=== PATIENT | male | born 1945 | race Caucasian/White ===

== ENCOUNTER 2020-02-23 20:15 | Observation (INO) | payer MEDICARE, SELFPAY ==
--- NOTE | ~2020-02-23 | XR_ITS ---
EXAMINATION: XR chest 1V portable EXAM DATE: 02/23/2020 20:48 INDICATION: Altered mental status, dementia. Elevated heart rate. TECHNIQUE: Portable AP frontal chest x-ray was obtained. There is no prior study for comparison. FINDINGS: Mild hyperinflation. The lungs are clear. There are no pleural effusions. The cardiomedia stinal silhouette is within normal limits. There is no pneumothorax suspected. The bones and soft t issues are unremarkable. IMPRESSION: Chronic mild hyperinflation. Reviewed, dictated and finalized at location A.
--- NOTE | ~2020-02-23 | CT_ITS ---
EXAMINATION: CT brain wo con EXAM DATE: 02/23/2020 21:27 INDICATION: Temporary change in awareness. TECHNIQUE: Spiral CT of the head was performed without contrast. Axial, coronal and sagittal images were reviewed. The dose-length product (DLP) for this examination was 1210.67 mGy-cm. The exposure was tailored according to patient size, and iterative reconstruction (ASIR) was used as additional do se reduction technique. There is no prior study for comparison. FINDINGS: There is no acute intraparenchymal hemorrhage. No evidence of intraparenchymal brain mass lesion. No evidence of acute infarction. Please note that initial head CT has limited sensitivity f or small or acute infarctions. There is mild periventricular and subcortical hypodensity, nonspecific but probably related to small vessel ischemic disease. There is mild to moderate prominence of the sulci and ventricles related to cerebral atrophy. There is intracranial carotid arteriosclerosis. There are no extra-axial collections. There is no mass effect or midline shift. Patient has had ri ght-sided ocular lens surgery. Soft tissue is unremarkable. The visualized sinuses and mastoid air cells are well aerated. IMPRESSION: 1. No acute intracranial findings. 2. Chronic age related findings. Reviewed, dictated and finalized at location A.
--- NOTE | ~2020-02-23 | CT_ITS ---
EXAMINATION: CTA neck DATE: 02/25/2020 16:08 INDICATION: Carotid stenosis. TECHNIQUE: Computed tomographic angiography (CTA) of the neck was performed with 100 mL Omnipaque-350 intravenous contrast. Automated exposure control and iterative reconstruction technique were employe d. The dose-length product was 537.83 mGy-cm. Maximum intensity projection 3D-reconstructions were cr eated by the technologist on a separate workstation. COMPARISON: Ultrasound 02/25/2020 FINDINGS: There is mild scarring at the lung apices. There are no pathologically enlarged lymph nodes . There is a 1.5 cm subcutaneous mass in the posterior neck, likely a sebaceous cyst. The vertebral a rteries are codominant. There is mild stenosis of the mid right vertebral artery secondary to cervica l spondylosis. There is plaque in the proximal internal carotid arteries. There is 47% stenosis of th e proximal right internal carotid artery relative to normal distal artery lumen diameter (NASCET crit eria). There is 78% stenosis of the proximal left internal carotid artery relative to normal distal a rtery lumen diameter. There is severe cervical spondylosis. IMPRESSION: 1. 47% stenosis of the proximal right internal carotid artery relative to normal distal artery lumen diameter (NASCET criteria). 2. 78% stenosis of the proximal left internal carotid artery relative to normal distal artery lumen d iameter. Reviewed, dictated and finalized at location A. IMPRESSION: 1. 47% stenosis of the proximal right internal carotid artery relative to dangelo l distal artery lumen diameter (NASCET criteria). 2. 78% stenosis of the proximal left internal carotid artery relative to normal distal artery lumen diameter.
--- NOTE | ~2020-02-23 | US_ITS ---
EXAMINATION: US carotid duplex BI DATE: 02/25/2020 09:16 INDICATION: Confusion. Transient alteration of awareness. TECHNIQUE: Grayscale, color Doppler, and pulsed Doppler images of the cervical carotid arteries were obtained. The degree of vessel stenosis is placed in one of the following categories: normal, <50%, 5 0-69%, >=70% but less than near-occlusion, near-occlusion, or total occlusion. Note that percent sten osis relative to normal distal artery lumen diameter is indirectly measured from velocity measurement s as described by Wayne, et al. Radiology 2003; 229:340-346. Notes: Normal: Peak systolic velocity <125 centimeters/sec and no plaque <50%. Peak systolic velocity <125 ( EDV <40; ICA/CCA PSV ratio <2.0; used these factors only a tandem lesions or low cardiac output or co ntralateral disease) 50-69 %: PSV 125-230 (EDV 40-100; ratio 2-4) >= 70% but less than near occlusion: PSV greater than 230 (EDV > 100; ratio> 4.0) Near Occlusion: PSV that is variable; markedly narrowed lumen Occlusion: Absent flow on color/spectral Doppler and no lumen on shi scale. COMPARISON: None. FINDINGS: RIGHT: The right common carotid artery (CCA) peak systolic velocity (PSV) is 59 cm/s. The right internal car otid artery (ICA) PSV is 128 cm/s. The right ICA end-diastolic velocity (EDV) is 29 cm/s. The right I CA/CCA PSV ratio is 2.2. The external carotid artery (ECA) PSV is 313 cm/s. There is antegrade flow i n the right vertebral artery. LEFT: The left CCA PSV is 108 cm/s. The left ICA PSV is 299 cm/s. The left ICA EDV is 81 cm/s. The left ICA /CCA PSV ratio is 2.8. The ECA PSV is 131 cm/s. There is antegrade flow in the left vertebral artery . IMPRESSION: 1. 50-69% stenosis in the right internal carotid artery by sonographic criteria. 2. Greater than or equal to 70% stenosis in the left internal carotid artery by sonographic criteria. Reviewed, dictated and finalized at location A. IMPRESSION: 1. 50-69% stenosis in the right internal carotid artery by sonographic criteria . 2. Greater than or equal to 70% stenosis in the left internal carotid artery by sonographic criteria.
--- NOTE | ~2020-02-23 | MR_ITS ---
EXAMINATION: MR brain/brain stem wo/w con DATE: 02/25/2020 12:12 INDICATION: Confusion. Alteration of awareness. TECHNIQUE: Magnetic resonance imaging (MRI) of the brain and brainstem was performed without and with 13 cc MultiHance intravenous contrast. Sequences included sagittal and axial T1-weighted SE, axial d iffusion-weighted FS SE, axial T2*-weighted GRE, axial T2-weighted FLAIR Propeller, and axial T2-weig hted Propeller. Apparent diffusion coefficient (ADC) maps were created. COMPARISON: CT dated 02/23/2020. FINDINGS: Generalized atrophy. There are scattered mild-moderate periventricular and subcortical whit e matter changes, most likely related to small vessel ischemic disease (microangiopathy). No acute in tracranial infarction or hemorrhage. No abnormal masses or enhancement. No ventriculomegaly or midlin e shift. Structures of the posterior fossa are unremarkable. No significant abnormality of the sinuse s. IMPRESSION: 1. No acute intracranial abnormality. 2: Chronic age-related findings. Reviewed, dictated and finalized at location A.
[2020-02-23 20:13] VITALS: BP 139/78; PULSE 147; RESP 18; TEMP 36.8; O2SAT 98
[2020-02-23 20:16] VITALS: PULSE 147
--- NOTE | 2020-02-23 20:21 | PC.NURSE ---
EKG done at 2009, showed to [facility] at 2020
--- NOTE | 2020-02-23 20:24 | ED.AMS ---
HPI - Altered Mental Status General Chief Complaint: Arrhythmia/Palpitations Stated Complaint: alt loc Time Seen by Provider: 02/23/20 20:21 History of Present Illness HPI narrative: Brought in by EMS from home for AMS. He reportedly has dementia, but his said that he had been more confused than usual. Noted to be in a-fib with RVR. He is only oriented to himself and is not able to provide any useful history. Medical history or course of currently illness unknown. Related Data Home Medications Medication Instructions Recorded Confirmed donepezil 5 mg PO HS 02/24/20 02/24/20 escitalopram oxalate 20 mg PO DAILY 02/24/20 02/24/20 losartan 50 mg PO DAILY 02/24/20 02/24/20 metoprolol succinate 100 mg PO DAILY 02/24/20 02/24/20 quetiapine 25 mg PO DAILY 02/24/20 02/24/20 tamsulosin 0.4 mg PO HS 02/24/20 02/24/20 trazodone 50 mg PO HS 02/24/20 02/24/20 venlafaxine 150 mg PO DAILY 02/24/20 02/24/20 Allergies Allergy/AdvReac Type Severity Reaction Status Date / Time No Known Allergies Allergy Verified 02/23/20 22:53 Review of Systems Review of Systems: ROS unobtainable: Yes unobtainable due to mental status PMFSH Past Medical History Medical History (Updated 02/24/20 @ 04:32 by Wayne Oliver MD) BPH (benign prostatic hyperplasia) Chronic anemia Chronic renal failure, stage 3 (moderate) HTN (hypertension), malignant Surgical History Surgical History (Updated 02/23/20 @ 23:16 by Carmina Hurtado NP) Cataract extraction status of eye Right eye Family History Family History (Updated 02/24/20 @ 02:13 by Crystal Simon RN) Sibling Diabetes mellitus Sibling Cancer Mother Pacemaker Sibling Mental disorder Father Cancer Social History Social History (Updated 02/23/20 @ 23:22 by Carmina Hurtado NP) Social History: The patient lives with his Tory and she is a durable power claim attorney for healthcare. She states that the patient is a full code. He has a daughter named Katie correia. The patient used to use smoke heavily 2 packs of cigarettes a day until the age of 27. He quit smoking since then. He will retired from [employer] still. He used to drink alcohol but does not currently. No marijuana or illicit drugs. Smoking packs per day: 2 Smoking cigarettes per day: 40.0 Smoking status: Former smoker Tobacco type: cigarettes Alcohol intake: former Substance use: never Living arrangements: with family Occupation/Education: retired Gender identity (if verbalized by the patient): Male Sexual Orientation (if Verbalized by the Patient): Straight or Heterosexual Comments History unobtainable. Exam Const: General: no acute distress and alert Nutritional Appearance: well nourished Other: oriented to self HENMT: Head: normal to inspection Eyes: Pupils: Equal, round and reactive pupils present Resp: Effort & Inspection: normal respiratory effort Auscultation: clear to auscultation bilaterally Cardio: Rate: tachycardic Rhythm: abnormal rhythm irregularly irregular GI: GI Palp: Yes Soft to palpation and No Tenderness to palpation present (GI) Skin: General skin exam: normal color Neuro: General: moves all extremities, no focal motor deficits and CN's II-XI intact bilaterally Speech: normal speech Extrem: General: no edema Course Vital Signs Vital signs: Vital Signs Temperature 36.8 C 02/23/20 20:13 Pulse Rate 147 H 02/23/20 20:13 Respiratory Rate 18 02/23/20 20:13 Blood Pressure 139/78 02/23/20 20:13 Pulse Oximetry 98 02/23/20 20:13 Temperature 36.3 C L 02/24/20 04:00 Pulse Rate 72 02/24/20 04:00 Respiratory Rate 20 02/24/20 04:00 Blood Pressure 125/66 02/24/20 04:00 Pulse Oximetry 100 02/24/20 04:00 MDM - Altered Mental Status MDM Narrative Medical decision making narrative: New onset a-fib w/ RVR. Dr. Be consulted. Will admit to the IMU. Differential Diagnosis Differential diagnosis: Likely del
[2020-02-23] MEDS: dilTIAZem HCl INJ 25 MG/5 ML VIAL 10 MG IV PUSH (20:31)
[2020-02-23] MEDS: SODIUM CHLORIDE 0.9% IV 1,000 ML 999 ML IV CONT (20:31)
[2020-02-23 20:36] VITALS: BP 134/78; PULSE 115; RESP 20; O2SAT 100
[2020-02-23 20:44] LABS: Partial Thromboplastin Time 34.6 SECONDS (22.3-36.8)
[2020-02-23 20:45] LABS: Basophils Percent Auto 0.3 % (0.2-1.2); Eosinophils Percent Auto 0.4 % (0-4.4); Hematocrit 33.8 % (42.0-52.0); Hemoglobin 11.8 g/dL (14.0-18.0); Immature Granulocyte Absolute 0.04 K/mm3 (0.00-0.031); Immature Granulocyte Percent A 0.4 % (0-0.5); Lymphocytes Absolute Auto 1.78 K/mm3 (0.9-3.2); Lymphocytes Percent Auto 15.8 % (18.3-44.2); Mean Corpuscular HGB Conc 34.9 g/dl (32-36); Mean Corpuscular Hemoglobin 31.3 pg (26-34); Mean Corpuscular Volume 89.7 fl (80-100); Mean Platelet Volume 9.8 fl (7.4-10.4); Monocytes Absolute Auto 1.1 K/mm3 (0.1-0.6); Monocytes Percent Auto 9.8 % (2.6-8.5); Neutrophils Absolute Auto 8.3 K/mm3 (1.3-6.7); Neutrophils Percent Auto 73.3 % (45.5-73.1); Platelet Count Result 265 k/mm3 (150-375); Red Blood Count 3.77 M/mm3 (4.6-6.20); Red Cell Distribution Width 13.2 % (11.5-14.5); White Blood Count 11.3 K/mm3 (4.5-10.0)
[2020-02-23 20:47] LABS: Alanine Aminotransferase 21 U/L (4-50); Albumin Level 4.1 g/dL (3.5-5.1); Alkaline Phosphatase 85 U/L (38-126); Anion Gap 11 mmol/L (8-16); Aspartate Amino Transferase 37 U/L (17-59); Bilirubin,Total 0.9 mg/dL (0.2-1.3); Blood Urea Nitrogen 37 mg/dL (9-20); Calcium 9.4 mg/dL (8.4-10.2); Carbon Dioxide 22 mmol/L (22-30); Chloride 103 mmol/L (98-107); Estimated CRCL calculation 37 ml/min; Estimated Glomerular Filt Rate 49; Glucose 133 mg/dL (75-110); Potassium 3.8 mmol/L (3.4-5.0); Sodium 136 mmol/L (137-145)
[2020-02-23 20:58] LABS: Troponin I 0.019 ng/mL (0.000-0.034)
[2020-02-23] MEDS: HALOPERIDOL LACTATE 5 MG/ML VIAL IV PUSH (21:02)
[2020-02-23 21:17] LABS: Thyroid Stimulating Hormone 0.527 uIU/mL (0.465-4.680)
[2020-02-23 21:48] LABS: Add Urine Microscopic? YES; Appearance Urine Clear (Clear); Bacteria Urine Trace /hpf; Bilirubin Urine Negative (Negative); Blood Urine Negative (Negative); Color Urine Yellow (Yellow); Glucose Urine UA Negative (Negative); Ketones Urine 1+ mg/dL (Negative); Leukocyte Esterase Ur Negative LEU/UL (Negative); Mucus Urine Rare /lpf; Nitrate Urine Negative (Negative); Protein Urine 1+ mg/dL (Negative); Specific Grav Ur 1.021 (1.001-1.035); Squamous Epithelial Cell Urine Rare /hpf (Few); Urobilinogen Urine Negative mg/dL (<2.0); WBC Urine 0-3 /hpf
[2020-02-23 22:28] VITALS: BP 134/76; PULSE 108
[2020-02-23] MEDS: ENOXAPARIN 80 MG/0.8 ML SYRINGE 60 MG SUB-Q (22:28)
--- NOTE | 2020-02-23 23:08 | PM.IMHP ---
H&P: HPI History of Present Illness Date/Time: 02/23/20 23:08 Chief complaint: alt loc Narrative: Peter Viveros is a 74 year old male who patient was brought to the emergency due to altered mental status. The patient became more confused recently. I did speak to his Tory over the phone. She stated that the patient had an episode a couple months ago where he was talking about being broken having no insurance and was concerned about his body eating itself. The patient told me that he could not afford to stay in the hospital today and that he was broken did have insurance. I spoke with the in the do have insurance and they are not broke. The patient is not always compliant with his medications. He does not like to seek advice from physicians. 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 It has been stable so far. Also he has been having some prostate problems and the patient was concerned that he had prostate cancer and that nobody selling him. Patient is having some delusional ideas. The patient told me that he is diabetic but his Tory told me that he is not. Patient has not had any previous history of atrial fibrillation or any heart disease in the past that his Tory is aware of. She stated he had his teeth pulled out he had an irregular heart rate at that time but he has not had any treatment for it. He has not had any strokes. The patient told me that he had seizure in the past in the past but the Tory told me that he had not had any seizures. He had a of compulsion with drinking water at 1 time and depleted his electrolytes at 1 time. But does not have seizure disorder. The patient denies any nausea vomiting or diarrhea. However the patient does appear to be dehydrated. Patient has no complaints of chest pain. Head CT was negative for for anything acute at this time. Chest x-ray was read as chronic mild hyperinflation. The patient has a history of being a heavy smoker in the past. Was never diagnosed with COPD as far as the is concerned. Patient's white count is 11.3. H&H 11.8 and 33.8. The patient's did tell me that he does have chronic anemia due to his kidney disease. Troponin is negative. The patient was found to be in AFib with RVR. He the patient was given subcu Lovenox and started on a Cardizem drip. When I saw his rate he was in the 1 teens. Date of service is 02/23/2020 Review of Systems Review of Systems: All systems reviewed & are unremarkable except as noted in HPI and below Constitutional: Constitutional: Reports as per HPI and Reports no additional constitutional complaints Eyes: Eyes: Reports as per HPI and Reports no additional eye complaints ENT: Reports system reviewed and no additional complaints, except as documented and Reports Normal hearing present Cardiovascular: Cardiovascular: Reports no additional cardiovascular complaints Respiratory: Respiratory: Reports no additional respiratory complaints and Reports no additional respiratory complaints Gastrointestinal: Gastrointestinal: Reports as per HPI and Reports no additional gastrointestinal complaints Musculoskeletal: Musculoskeletal: Reports no additional musculoskeletal complaints Integumentary/Breasts: Skin/Breast: Reports system reviewed and no additional complaints, except as docu and Reports as per HPI Neurologic: Reports system reviewed and no additional complaints, except as documented, Reports as per HPI and Reports Normal hearing present Psychiatric: Psychiatric: Reports no additional psychiatric complaints and Reports as per HPI Endocrine: Endocrine: Reports no additional endocrine complaints Hematologic/Lymphatic: Hematologic/Lymphatic: Reports no additional hematologic/lymphatic complaints Allergic/Immunologic: Allergic/Immunologic: Reports no additional allergic/immunologic complaints PMFSH Past Me
[2020-02-23 23:39] VITALS: BP 135/72; PULSE 111; RESP 18; O2SAT 99
[2020-02-24] VITALS (20 sets, daily range): BP systolic 109–149; BP diastolic 60–92; PULSE 69–110; RESP 16–20; TEMP 36.3–36.9; O2SAT 97–100; BMI 20.8
--- NOTE | 2020-02-24 01:26 | ECG_ITS ---
Measurements Intervals [place] Rate: 101 P: PA: 0 QRS: 66 QRSD: 116 T: 31 QT: 396 QTc: 515 Interpretive Statements ATRIAL FLUTTER/TACHYCARDIA WITH RAPID VENTRICULAR RESPONSE FREQUENT VENTRICULAR PREMATURE COMPLEXES INCOMPLETE RIGHT BUNDLE BRANCH BLOCK NONSPECIFIC ST & T-WAVE ABNORMALITY- ANTEROLAT/INF LEADS BASELINE ARTIFACT- II, III, AVR, AVL, AVF, V1-V3 ABNORMAL ECG Electronically Signed On 02-24-2020 7:43:29 CDT by Manuel Clark D.O.
--- NOTE | 2020-02-24 01:26 | ECG_ITS ---
Measurements Intervals [place] Rate: 117 P: TN: 0 QRS: 72 QRSD: 110 T: 43 QT: 298 QTc: 417 Interpretive Statements ATRIAL FLUTTER/TACHYCARDIA WITH RAPID VENTRICULAR RESPONSE VENTRICULAR PREMATURE COMPLEXES INCOMPLETE RIGHT BUNDLE BRANCH BLOCK NONSPECIFIC ST & T-WAVE ABNORMALITY- ANTEROLAT/INF LEADS ABNORMAL ECG Electronically Signed On 02-24-2020 7:36:53 CDT by Manuel Clark D.O.
--- NOTE | 2020-02-24 02:16 | ADMIMU ---
This patient, Peter Viveros, was admitted to IMU status, and placed in IMU Room 231-01 02/24/20 at 0111. Patient/family oriented to hospital policies and general routines including ID bracelet, bed and alarms, visiting hours, pain management, procedures, bathroom and other care routines, personal items, smoking policy, room service/diet, and visiting hours. Valuables list has been completed. Information on how to activate the Rapid Response Team has been discussed. Patient/Family are encouraged to report perceived risks to care and to ask questions if they do not understand what they are told or what they should do.
[2020-02-24] MEDS: ENOXAPARIN 60 MG/0.6 ML SYRINGE SUB-Q ×2 (08:54→20:50)
--- NOTE | 2020-02-24 13:50 | PM.CNCAR ---
Assessment and Plan Assessment and plan (1) Atrial fibrillation with RVR: Code(s): I48.91 - Unspecified atrial fibrillation Status: Acute Assessment and Plan: Patient essentially asymptomatic and incidentally discovered. No prior documentation or known history despite patient stating he has been aware of fibrillation most of his life. Yet, he denied being aware. CHADS2-Vasc score 4. Ideally, systemic A/C recommended for adequate CVA risk reduction, however, Given patient's intermittent confusion, reported noncompliance, and recent fall with possibly hitting his head he would not be an ideal candidate. Aspirin 325 mg daily otherwise would be minimal recommendation as tolerated. Conservative heart rate control strategy appears to be the best option at this time. Initiate metoprolol tartrate 50 mg p.o. q.8 hours and discontinue diltiazem infusion. Will attempt to simplify regimen as HR permits. Anticipate Toprol XL 150mg daily but will need to observe tolerance overnight. Will monitor heart rate control and tolerance. Further recommendations to follow. 2D echocardiogram. (2) Confusion: Code(s): R41.0 - Disorientation, unspecified Status: Acute Assessment and Plan: per primary service. UA unremarkable. Etiology not precisely clear (3) Chronic renal failure, stage 3 (moderate): Code(s): N18.30 - Chronic kidney disease, stage 3 unspecified Status: Chronic Assessment and Plan: creatinine 1.4, chronicity unknown at this time. (4) HTN (hypertension), benign: Code(s): I10 - Essential (primary) hypertension Status: Acute Assessment and Plan: Good control thus far. (5) Falls: Code(s): W19.XXXA - Unspecified fall, initial encounter Status: Acute Assessment and Plan: Places patient high risk for adverse bleeding complications with systemic anticoagulation. PT OT. Further evaluation and candidacy. History of Present Illness History of Present Illness Consult date/time: Date of service:02/24/20 13:50 Cardiology consultation at the request of Carmina Hurtado [facility] for our opinion regarding atrial fibrillation with RVR. Requesting physician: Carmina Hurtado NP Consult reason: atrial fibrillation Reason For Visit: a-fib w/ RVR, AMS Narrative: Patient is a 74-year-old male is brought to the emergency department by his with complaints of altered mental status. Per electronic medical record patient had recently become more confused intermittently. It is min reported per the and by the patient he says he has broken has no insurance and cannot be in the hospital. Per his they are now broke and they have commercial insurance so she is not sure why he continues to repeat this concern. It is reported he is not compliant with medications and does not follow up with medical care. It is noted the electronic record patient claims to be diabetic but the patient's denied this. Patient's reports she was unaware of any history of arrhythmia or specifically atrial fibrillation or CAD but the patient states he has had fibrillation most of his life. He says nothing can be done for him in this regard. He then went on to explain her nothing can be done for him in general and that his internal organs are eating each other and sucking the fluid from him which is why he is dehydrated. When I initially entered his room and prior to saying anything he began repeating [id number] [id number], fabián, fabián... when I asked him what he was saying he can't explain how he has broke and has no insurance and cannot afford to be in the hospital in all that is being done is just to make money. I assured him I am here as requested to provide assistance in his care with regards to his atrial fibrillation. He continually repeated that no one could help him and nothing could be done. S I attempted to explained my role,
[2020-02-24] MEDS: METOPROLOL TARTRATE 50 MG TAB PO ×2 (15:44→22:14)
--- NOTE | 2020-02-24 17:46 | PM.IMPN ---
Progress Note: A&P Assessment and Plan (1) Atrial fibrillation with RVR: Code(s): I48.91 - Unspecified atrial fibrillation Status: Acute Assessment and Plan: The read on the EKG was read as atrial fibrillation with rapid ventricular response which appears to be a course AFib . An echo has been ordered as well. fibrillation is relatively asymptomatic. Not a good candidate for anticoagulation with his compliance and with his recent fall and mental status. Goal will probably be controlling ventricular response (2) HTN (hypertension), malignant: Code(s): I10 - Essential (primary) hypertension Status: Chronic Assessment and Plan: metoprolol started by Cardiology to help control ventricular response and will help with blood pressure 2 (3) Confusion: Code(s): R41.0 - Disorientation, unspecified Status: Acute Assessment and Plan: Patient appeared to be dehydrated. CT of the of the brain was negative. Will check carotids and do an MRI of the brain. The patient has been having some obsessions at home and having some illogical conversations with his on and off for the last couple months. suspect this is onset of dementia And his home medication list includes Aricept. TSH was normal and will check B12 level also. (4) BPH (benign prostatic hyperplasia): Code(s): N40.0 - Benign prostatic hyperplasia without lower urinary tract symptoms Status: Chronic Assessment and Plan: on tamsulosin which will continue (5) Chronic renal failure, stage 3 (moderate): Code(s): N18.30 - Chronic kidney disease, stage 3 unspecified Status: Chronic Assessment and Plan: He follows with Dr. Soares and it has been stable. He also has chronic anemia due to chronic renal failure. Continue to monitor. (6) Chronic anemia: Code(s): D64.9 - Anemia, unspecified Status: Chronic Assessment and Plan: Continue to monitor. The stated that this anemia is chronic due to the renal failure. and will check iron studies also Subjective Date/time seen: 02/24/20 17:46 Interval history: date of visit 02/23. 74-year-old hypertensive male with chronic renal failure probable stage III brought to ER by for altered mental status. Patient is obsessed with financial concerns at according to he does not have. He is found to have incidental atrial fibrillation rapid ventricular response so admitted for treatment of the same. Denies any shortness of breath, chest pain, or palpitation Exam Narrative: Exam Narrative: blood pressure 118/60 pulse is irregular 110 sat 98% on room air afebrile pupils equal reactive light sclera anicteric neck supple no adenopathy thyromegaly carotid bruits lungs clear CV irregular hear no murmurs abdomen is soft nontender no masses extremities without edema distal pulses are 2+ neuro alert pleasant cooperative no focal deficits, but confused Objective Data Vital Signs Vital Signs: Vital Signs - 24 hr 02/23/20 20:13 02/23/20 20:16 02/23/20 20:36 Temperature 36.8 C Pulse Rate 147 H 147 H 115 H Respiratory Rate 18 20 Blood Pressure 139/78 134/78 Pulse Oximetry 98 100 02/23/20 22:28 02/23/20 23:39 02/24/20 01:02 Temperature 36.3 C L Pulse Rate 108 H 111 H 110 H Respiratory Rate 18 18 Blood Pressure 134/76 135/72 134/85 Pulse Oximetry 99 97 02/24/20 01:20 02/24/20 01:41 02/24/20 01:50 Temperature 36.6 C Pulse Rate 103 H 103 H 110 H Respiratory Rate 18 18 18 Blood Pressure 136/75 134/85 Pulse Oximetry 100 100 100 02/24/20 01:55 02/24/20 02:00 02/24/20 04:00 Temperature 36.3 C L Pulse Rate 110 H 86 72 Respiratory Rate 20 Blood Pressure 125/66 Pulse Oximetry 100 02/24/20 06:00 02/24/20 08:00 02/24/20 10:00 Temperature 36.9 C Pulse Rate 71 69 91 Respiratory Rate 20 Blood Pressure 113/63 Pulse Oximetry 100 02/24/20 12:00 02/24/20 14:00 02/24/20 1
[2020-02-24] MEDS: TAMSULOSIN HCL 0.4 MG CAPSULE PO (20:50)
[2020-02-24] MEDS: DONEPEZIL HCL 5 MG TABLET PO (20:50)
[2020-02-24] MEDS: traZODone HCL 50 MG TABLET PO (20:50)
[2020-02-25] VITALS (16 sets, daily range): BP systolic 121–158; BP diastolic 60–118; PULSE 63–93; RESP 16–20; TEMP 35.9–36.5; O2SAT 95–100
[2020-02-25 06:22] LABS: Basophils Percent Auto 0.3 % (0.2-1.2); Eosinophils Absolute Auto 0.1 K/mm3 (0-0.3); Eosinophils Percent Auto 1.1 % (0-4.4); Hematocrit 34.5 % (42.0-52.0); Hemoglobin 11.6 g/dL (14.0-18.0); Immature Granulocyte Absolute 0.06 K/mm3 (0.00-0.031); Immature Granulocyte Percent A 0.5 % (0-0.5); Lymphocytes Absolute Auto 1.49 K/mm3 (0.9-3.2); Lymphocytes Percent Auto 12.7 % (18.3-44.2); Mean Corpuscular HGB Conc 33.6 g/dl (32-36); Mean Corpuscular Hemoglobin 30.9 pg (26-34); Mean Corpuscular Volume 91.8 fl (80-100); Mean Platelet Volume 10.1 fl (7.4-10.4); Monocytes Percent Auto 8.4 % (2.6-8.5); Platelet Count Result 241 k/mm3 (150-375); Red Blood Count 3.76 M/mm3 (4.6-6.20); Red Cell Distribution Width 12.8 % (11.5-14.5); White Blood Count 11.7 K/mm3 (4.5-10.0)
[2020-02-25] MEDS: METOPROLOL TARTRATE 50 MG TAB PO ×3 (06:26→23:52)
[2020-02-25 06:40] LABS: Anion Gap 6 mmol/L (8-16); Blood Urea Nitrogen 18 mg/dL (9-20); Carbon Dioxide 31 mmol/L (22-30); Chloride 99 mmol/L (98-107); Estimated CRCL calculation 56 ml/min; Estimated Glomerular Filt Rate > 60; Glucose 112 mg/dL (75-110); Potassium 3.6 mmol/L (3.4-5.0); Sodium 136 mmol/L (137-145)
[2020-02-25 07:08] LABS: Iron 90 ug/dL (49-181)
[2020-02-25 07:17] LABS: Percent Iron Saturation 40 % (20-50)
[2020-02-25] MEDS: ESCITALOPRAM OXALATE 10 MG TABLET 20 MG PO (10:00)
[2020-02-25] MEDS: QUEtiapine FUMARATE 25 MG TABLET PO (10:00)
[2020-02-25] MEDS: ENOXAPARIN 60 MG/0.6 ML SYRINGE SUB-Q (10:00)
[2020-02-25] MEDS: VENLAFAXINE HCL XR 75 MG CAP.ER.24H 150 MG PO (10:00)
--- NOTE | 2020-02-25 12:37 | PM.PNCARD ---
Progress Note: A&P Assessment and Plan (1) Atrial fibrillation with RVR: Code(s): I48.91 - Unspecified atrial fibrillation Status: Acute Assessment and Plan: Patient essentially asymptomatic and incidentally discovered. No prior documentation or known history despite patient stating he has been aware of fibrillation most of his life. CHADS2-Vasc score 4. Ideally, systemic A/C recommended for adequate CVA risk reduction, however, Given patient's intermittent confusion, reported noncompliance, and recent fall with possibly hitting his head he would not be an ideal candidate. Aspirin 325 mg daily otherwise would be minimal recommendation as tolerated. May change to DVT prophylactic dosing of Enoxaparin. Conservative heart rate control strategy. Change to Toprol XL 150mg daily tomorrow. Will monitor heart rate control and tolerance. Further recommendations to follow. 2D echocardiogram pending (2) Confusion: Code(s): R41.0 - Disorientation, unspecified Status: Acute Assessment and Plan: per primary service. UA unremarkable. CTA neck pending. MRI negative. Carotid dopplers <70% LICA 50-69% LAWSON stenosis. (3) Chronic renal failure, stage 3 (moderate): Code(s): N18.30 - Chronic kidney disease, stage 3 unspecified Status: Chronic Assessment and Plan: creatinine 1.4 initially, 0.9 today consistent with dehydration at presentation. (4) HTN (hypertension), benign: Code(s): I10 - Essential (primary) hypertension Status: Acute Assessment and Plan: Good control thus far. (5) Falls: Code(s): W19.XXXA - Unspecified fall, initial encounter Status: Acute Assessment and Plan: Places patient high risk for adverse bleeding complications with systemic anticoagulation. PT OT. Further evaluation and candidacy. Subjective Date/time seen: date of service: 02/25/20 12:37 Follow-up for atrial fibrillation with rapid ventricular response patient states he feels about the same today. Denies shortness of breath, chest pain, palpitations. Heart rate much better controlled 60's-90 on metoprolol 50 mg Q 8 hour. Diltiazem drip stopped yesterday. no new issues overnight. Review of Systems Review of Systems: All systems reviewed & are unremarkable except as noted in HPI and below Constitutional: Constitutional: Reports as per HPI, Reports no additional constitutional complaints, Reports weakness and Reports other ( fall 3 days ago) Eyes: Eyes: Reports as per HPI and Reports no additional eye complaints ENT: Reports system reviewed and no additional complaints, except as documented, Reports as per HPI, Denies dysphagia and Reports disequilibrium Cardiovascular: Cardiovascular: Reports as per HPI, Reports no additional cardiovascular complaints, Denies irregular heart rhythm, Denies lightheadedness, Denies palpitations and Denies dyspnea on exertion Respiratory: Respiratory: Reports as per HPI, Reports no additional respiratory complaints, Denies cough and Denies dyspnea on exertion Gastrointestinal: Gastrointestinal: Reports as per HPI, Reports no additional gastrointestinal complaints, Denies abdominal pain, Denies hematochezia, Denies dysphagia, Denies diarrhea, Denies nausea and Denies vomiting Genitourinary: Genitourinary: Reports no additional male genitourinary complaints, Reports as per HPI and Denies dysuria Musculoskeletal: Musculoskeletal: Reports no additional musculoskeletal complaints and Reports as per HPI Integumentary/Breasts: Skin/Breast: Reports system reviewed and no additional complaints, except as docu, Reports as per HPI and Reports unusual bruising ( status post fall) Neurologic: Reports system reviewed and no additional complaints, except as documented, Reports as per HPI, Reports confusion, Reports disequilibrium and Reports weakness Psychiatric: Psychiatric: Reports no additional psychiatric complaints, Reports as per
--- NOTE | 2020-02-25 17:35 | PM.IMPN ---
Progress Note: A&P Assessment and Plan (1) Atrial fibrillation with RVR: Code(s): I48.91 - Unspecified atrial fibrillation Status: Acute Assessment and Plan: The read on the EKG was read as atrial fibrillation with rapid ventricular response which appears to be a course AFib . An echo has been ordered as well. fibrillation is relatively asymptomatic. Not a good candidate for anticoagulation with his compliance and with his recent fall and mental status. Goal will be controlling ventricular response and much better today with increased dose of beta-jacquie per Cardiology (2) HTN (hypertension), malignant: Code(s): I10 - Essential (primary) hypertension Status: Chronic Assessment and Plan: metoprolol started by Cardiology to help control ventricular response and blood pressure well controlled also (3) Confusion: Code(s): R41.0 - Disorientation, unspecified Status: Acute Assessment and Plan: Patient appeared to be dehydrated. CT of the of the brain was negative. carotids 50-70% right internal carotid and 70 or greater% left internal carotid, CTA of the carotids is pending. MRI of the brain no acute changes to his chronic. The patient has been having some obsessions at home and having some illogical conversations with his on and off for the last couple months. suspect this is all dementia And his home medication list includes Aricept. TSH was normal and will check B12 also. according to care coordination is planning on taking the patient home and anticipating moving into assisted living soon (4) BPH (benign prostatic hyperplasia): Code(s): N40.0 - Benign prostatic hyperplasia without lower urinary tract symptoms Status: Chronic Assessment and Plan: on tamsulosin which will continue (5) Chronic renal failure, stage 3 (moderate): Code(s): N18.30 - Chronic kidney disease, stage 3 unspecified Status: Chronic Assessment and Plan: He follows with Dr. Soares and it has been stable. He also has chronic anemia due to chronic renal failure. Continue to monitor. creatinine dropped to 0.9 after hydration (6) Chronic anemia: Code(s): D64.9 - Anemia, unspecified Status: Chronic Assessment and Plan: Continue to monitor. The stated that this anemia is chronic due to the renal failure. and iron TIBC both relatively low but 40% saturation with high ferritin. not high enough to consider hemochromatosis Subjective Date/time seen: 02/25/20 17:35 Interval history: date of visit 02/24. 74-year-old hypertensive male with chronic renal failure probable stage III brought to ER by for altered mental status. Patient is obsessed with financial concerns that according to he does not have. He was found to have incidental atrial fibrillation rapid ventricular response so admitted for treatment of the same. Denies any shortness of breath, chest pain, or palpitation Exam Narrative: Exam Narrative: blood pressure 120/84 pulse is irregular 90 irregular sat 98% on room air afebrile pupils equal reactive light sclera anicteric neck supple and I hear no bruits lungs clear CV irregular hear no murmurs abdomen is soft nontender no masses extremities without edema distal pulses are 2+ neuro alert pleasant cooperative no focal deficits, but confused Objective Data Vital Signs Vital Signs: Vital Signs - 24 hr 02/24/20 18:00 02/24/20 19:07 02/24/20 20:00 Temperature 36.9 C Pulse Rate 81 69 70 Respiratory Rate 18 Blood Pressure 109/92 H Pulse Oximetry 97 02/24/20 22:00 02/24/20 22:14 02/24/20 23:48 Temperature 36.9 C Pulse Rate 84 101 H 79 Respiratory Rate 18 Blood Pressure 149/78 H Pulse Oximetry 97 02/25/20 00:00 02/25/20 02:00 02/25/20 03:51 Temperature 36.4 C L Pulse Rate 79 91 84 Respiratory Rate 20 Blood Pressure 158/76 H Pulse Oximetry 96
[2020-02-25] MEDS: traZODone HCL 50 MG TABLET PO (20:27)
[2020-02-25] MEDS: TAMSULOSIN HCL 0.4 MG CAPSULE PO (20:27)
[2020-02-25] MEDS: DONEPEZIL HCL 5 MG TABLET PO (20:31)
[2020-02-26] VITALS (7 sets, daily range): BP systolic 132–148; BP diastolic 73–76; PULSE 56–89; RESP 16–20; TEMP 36.1–36.4; O2SAT 100; BMI 21.0
--- NOTE | 2020-02-26 | ECHO_ITS ---
Patient Info Name: Peter Viveros Age: 74 years : 1945 Gender: Male Ht: 70 in Wt: 141 lbs BSA: 1.77 m2 HR: 65 bpm BP: 132 / 73 mmHg Heart Rhythm: Atrial Fibrillation Technical Quality: Good Exam Date: 02/26/2020 10:03 AM Exam Location: [facility] Patient Status: Inpatient Admit Date: 02/23/2020 Staff Ordering Physician: Telly Be MD Preform Machine Operator: Jesus Ladd, ERIC, RT Attending Provider: Maninder Carvalho MD Referring Physician: [place] MICHAEL; Exam Type: CA echo doppler color flow Study Info Indications I48.0 - Paroxysmal atrial fibrillation Complete two-dimensional, color flow and Doppler transthoracic echocardiogram is performed. Strain analysis performed. Summary 1. Complete two-dimensional, color flow and Doppler transthoracic echocardiogram is performed. 2. Strain analysis performed. 3. Left ventricular chamber dimension is normal. 4. Left ventricular systolic function is normal, estimated at 60-65%. 5. There is mildly increased left ventricular wall thickness. 6. The left ventricular diastolic function is abnormal. 7. Global longitudinal strain is borderline at -17 %. 8. Right ventricular chamber dimension is mildly enlarged. 9. Left atrial chamber dimension is severely enlarged. 10. Right atrial chamber dimension is moderately enlarged. 11. There is mild mitral valve regurgitation. 12. There is mild tricuspid valve regurgitation. 13. Mild pulmonary hypertension, estimated pulmonary arterial systolic pressure is 38 mmHg. Left Ventricle Left ventricular chamber dimension is normal. Left ventricular systolic function is normal, estimated at 60-65%. There is mildly increased left ventricular wall thickness. The left ventricular diastolic function is abnormal. Global longitudinal strain is borderline at -17 %. Right Ventricle Right ventricular chamber dimension is mildly enlarged. Right ventricular systolic function is normal. Left Atria Left atrial chamber dimension is severely enlarged. Right Atria Right atrial chamber dimension is moderately enlarged. Atrial Septum Intact interatrial septum visualized by color flow imaging. Aortic Valve The aortic valve is trileaflet. There is mild aortic valve sclerosis. There is no aortic valve stenosis. There is trace aortic valve regurgitation. Pulmonic Valve The pulmonic valve is normal. There is no pulmonic valve stenosis. There is trace pulmonic regurgitation. Mitral Valve The mitral valve has calcified annulus. There is no mitral valve stenosis. There is mild mitral valve regurgitation. Tricuspid Valve The tricuspid valve leaflets are normal. There is no significant tricuspid valve stenosis. There is mild tricuspid valve regurgitation. Mild pulmonary hypertension, estimated pulmonary arterial systolic pressure is 38 mmHg. Pericardium/Pleural The pericardium appears normal. There is trivial pericardial effusion. Inferior Vena Cava Dilated inferior vena cava with <50% collapse upon inspiration consistent with elevated right atrial pressure, 15 mmHg. Aorta The aortic root size at the sinus of Valsalva is normal. Left Ventricular Outflow Tract Name Value Normal LVOT 2D LVOT Diame
[2020-02-26 05:00] LABS: Anion Gap 5 mmol/L (8-16); Blood Urea Nitrogen 22 mg/dL (9-20); Calcium 8.8 mg/dL (8.4-10.2); Carbon Dioxide 29 mmol/L (22-30); Chloride 101 mmol/L (98-107); Estimated CRCL calculation 51 ml/min; Estimated Glomerular Filt Rate > 60; Glucose 98 mg/dL (75-110); Potassium 3.4 mmol/L (3.4-5.0); Sodium 135 mmol/L (137-145)
--- NOTE | 2020-02-26 10:21 | PM.PNCARD ---
Progress Note: A&P Assessment and Plan (1) Atrial fibrillation with RVR: Code(s): I48.91 - Unspecified atrial fibrillation Status: Acute Assessment and Plan: Patient essentially asymptomatic and incidentally discovered. No prior documentation or known history despite patient stating he has been aware of fibrillation most of his life. CHADS2-Vasc score 4. Ideally, systemic A/C recommended for adequate CVA risk reduction, however, Given patient's intermittent confusion, reported noncompliance, and recent fall with possibly hitting his head he would not be an ideal candidate. Will start aspirin 325 mg p.o. daily Conservative heart rate control strategy. Change to Toprol XL 150mg daily tomorrow. Will monitor heart rate control and tolerance. Further recommendations to follow. (2) Confusion: Code(s): R41.0 - Disorientation, unspecified Status: Acute Assessment and Plan: per primary service. UA unremarkable. MRI negative. Carotid dopplers <70% LICA 50-69% LAWSON stenosis. (3) Chronic renal failure, stage 3 (moderate): Code(s): N18.30 - Chronic kidney disease, stage 3 unspecified Status: Chronic Assessment and Plan: creatinine 1.4 initially, 0.9 today consistent with dehydration at presentation. (4) HTN (hypertension), benign: Code(s): I10 - Essential (primary) hypertension Status: Acute Assessment and Plan: Good control thus far. (5) Falls: Code(s): W19.XXXA - Unspecified fall, initial encounter Status: Acute Assessment and Plan: Places patient high risk for adverse bleeding complications with systemic anticoagulation. PT OT. Further evaluation and candidacy. Subjective Date/time seen: 02/26/20 10:21 Interval history: date of service 02/25. 74-year-old hypertensive male with chronic renal failure probable stage III brought to ER by for altered mental status. He feels fine today. And is without complaint of shortness of breath or chest pain Review of Systems Review of Systems: All systems reviewed & are unremarkable except as noted in HPI and below Constitutional: Constitutional: Reports as per HPI, Reports no additional constitutional complaints, Reports weakness and Reports other ( fall 3 days ago) Eyes: Eyes: Reports as per HPI and Reports no additional eye complaints ENT: Reports system reviewed and no additional complaints, except as documented, Reports as per HPI, Denies dysphagia and Reports disequilibrium Cardiovascular: Cardiovascular: Reports as per HPI, Reports no additional cardiovascular complaints, Denies irregular heart rhythm, Denies lightheadedness, Denies palpitations and Denies dyspnea on exertion Respiratory: Respiratory: Reports as per HPI, Reports no additional respiratory complaints, Denies cough and Denies dyspnea on exertion Gastrointestinal: Gastrointestinal: Reports as per HPI, Reports no additional gastrointestinal complaints, Denies abdominal pain, Denies hematochezia, Denies dysphagia, Denies diarrhea, Denies nausea and Denies vomiting Genitourinary: Genitourinary: Reports no additional male genitourinary complaints, Reports as per HPI and Denies dysuria Musculoskeletal: Musculoskeletal: Reports no additional musculoskeletal complaints and Reports as per HPI Integumentary/Breasts: Skin/Breast: Reports system reviewed and no additional complaints, except as docu, Reports as per HPI and Reports unusual bruising ( status post fall) Neurologic: Reports system reviewed and no additional complaints, except as documented, Reports as per HPI, Reports confusion, Reports disequilibrium and Reports weakness Psychiatric: Psychiatric: Reports no additional psychiatric complaints, Reports as per HPI, Reports anxiety and Reports confusion Endocrine: Endocrine: Reports no additional endocrine complaints, Reports as per HPI and Denies palpitations Hematologic/Lymphatic: Hematologic/Lymphatic: Re
[2020-02-26] MEDS: ASPIRIN 325 MG ENTERIC TABLET PO (11:31)
[2020-02-26] MEDS: METOPROLOL SUCCINATE EXT REL 50 MG TABCR 150 MG PO (11:31)
[2020-02-26] MEDS: VENLAFAXINE HCL XR 75 MG CAP.ER.24H 150 MG PO (11:34)
[2020-02-26] MEDS: QUEtiapine FUMARATE 25 MG TABLET PO (11:34)
[2020-02-26] MEDS: ESCITALOPRAM OXALATE 10 MG TABLET 20 MG PO (11:34)
[2020-02-26] MEDS: ATORVASTATIN 20 MG TABLET PO (11:35)
[2020-02-26] MEDS: ENOXAPARIN 40 MG/0.4 ML SYRINGE SUB-Q (11:35)
[2020-02-26] MEDS: POTASSIUM CHLORIDE 20 MEQ TABLET 40 MEQ PO (11:41)
--- NOTE | 2020-03-01 11:33 | PM.DS ---
DS: Admitting Diagnosis Admitting Diagnosis Admitting Diagnosis: a-fib w/ RVR, AMS DS: Discharge Diagnosis Discharge Diagnosis (1) Atrial fibrillation with RVR: Code(s): I48.91 - Unspecified atrial fibrillation Status: Acute Assessment and Plan: The read on the EKG was read as atrial fibrillation with rapid ventricular response which appears to be a course AFib . An echo EF 60-65% with enlarged LA fibrillation is relatively asymptomatic. Not a good candidate for anticoagulation with his compliance and with his recent fall and mental status. Goal will be controlling ventricular response and much better after hydration and will continue metoprolol XL 100 (2) HTN (hypertension), malignant: Code(s): I10 - Essential (primary) hypertension Status: Chronic Assessment and Plan: metoprolol and losartan continued (3) Confusion: Code(s): R41.0 - Disorientation, unspecified Status: Acute Assessment and Plan: Patient appeared to be dehydrated. CT of the of the brain was negative. carotids 50-70% right internal carotid and 70 or greater% left internal carotid, CTA of the carotids 47% LAWSON and 78% LICA MRI of the brain no acute changes . The patient has been having some obsessions at home and having some illogical conversations with his on and off for the last couple months. suspect this is all dementia And his home medication list includes Aricept. TSH was normal B12 also normal No intervention on carotid since dementia and asymptomatic according to care coordination is planning on taking the patient home and anticipating moving into assisted living soon (4) BPH (benign prostatic hyperplasia): Code(s): N40.0 - Benign prostatic hyperplasia without lower urinary tract symptoms Status: Chronic Assessment and Plan: on tamsulosin which will continue (5) Chronic renal failure, stage 3 (moderate): Code(s): N18.30 - Chronic kidney disease, stage 3 unspecified Status: Chronic Assessment and Plan: He follows with Dr. Soares and it has been stable. He also has chronic anemia due to chronic renal failure. Continue to monitor. creatinine dropped to 1.0 at d/c after hydration (6) Chronic anemia: Code(s): D64.9 - Anemia, unspecified Status: Chronic Assessment and Plan: Continue to monitor. The stated that this anemia is chronic due to the renal failure. and iron TIBC both relatively low but 40% saturation with high ferritin. not high enough to consider hemochromatosis DS: Summary Hospital Course Hospital Course: 74-year-old hypertensive demented male with history of atrial fibrillation brought the emergency room by for more acute confusion. Found to be in rapid AFib with dehydration and elevated creatinine. With hydration his creatinine fell to 1.0 at discharge and pulse ventricular response was in the 60s on his usual medication metoprolol XL 100 daily. 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 No full anticoagulation suggested due to his fall risk and mental status. is planning on moving to assisted living. Time Spent with Patient Time attestation: Total time spent providing and/or coordinating discharge services: 35 minutes Exam Narrative: Exam Narrative: Condition on discharge blood pressure 146/76 pulse is 66 irregular afebrile lungs clear CV irregular extremities without edema neuro alert oriented to person but confused intermittently. Take in a diet well and ambulating with physical therapy standby assist and stable to be discharged home under the care of his Discharge Plan Discharge Attending physician on discharge: Sam Partida Consulting providers: Telly Be ; Carmina Hurtado ; Daniel Reeder ; Wilmer Benton
== END 2020-02-26 16:35 | disposition home or self-care (01) ==
LOC: ANHED 21:17 → ANHIMU 02-24 02:15
PROVIDERS: Admitting Provider Family Medicine; Emergency Provider Emergency Medicine; PCP Internal Medicine; Visit Provider Internal Medicine
DX: I48.91 Unspecified atrial fibrillation (principal); I12.9 Hypertensive chronic kidney disease with stage 1 through stage 4 chronic kidney disease, or unspecified chronic kidney disease; N18.30 Chronic kidney disease, stage 3 unspecified; R41.0 Disorientation, unspecified; N40.0 Benign prostatic hyperplasia without lower urinary tract symptoms; D63.1 Anemia in chronic kidney disease; E86.0 Dehydration; I65.23 Occlusion and stenosis of bilateral carotid arteries; W19.XXXA Unspecified fall, initial encounter; Z87.891 Personal history of nicotine dependence
CPT/HCPCS: 36415; 70450; 70498; 70553; 71045; 80048; 80053; 81001; 82607; 82728; 83540; 83550; 84443; 84484; 85025; 85610; 85730; 93005; 93306; 93880; 96361; 96365; 96366; 96372; 96375; 96376; 97161; 97166; 99285; A9270; A9577; G0378; J1630; J1650; J7030; Q9967